=== PATIENT | male | born 1995 | race Caucasian/White ===

== ENCOUNTER 2017-03-22 05:44 | Emergency (ER) | payer BC, OTHER ==
[2017-03-22 05:55] VITALS: BP 140/76
[2017-03-22] MEDS ORDERED: Lidocaine 1% 50 ML MDV INJECT ONE (06:06)
--- NOTE | 2017-03-22 06:09 | EDM.PDOC ---
ED HPI GENERAL MEDICAL PROBLEM - General Chief Complaint: Laceration Stated Complaint: CUT LEFT THIGH Time Seen by Provider: 03/22/17 06:05 Source of Information: Reports: Patient, RN Notes Reviewed - History of Present Illness INITIAL COMMENTS - FREE TEXT/NARRATIVE: 21-year-old male suffered laceration injury to left leg a short time ago. He is working with a cook box filler and accidentally stabbed the left leg. There was some but not a lot of bleeding which was easily controlled with pressure, up-to-date with tetanus, no other injury - Related Data Allergies Allergy/AdvReac Type Severity Reaction Status Date / Time No Known Allergies Allergy Verified 03/22/17 05:55 Home Meds: Home Meds . [No Known Home Meds] 03/22/17 [History] Social & Family History - Tobacco Use Smoking Status *Q: Never Smoker - Recreational Drug Use Recreational Drug Use: No ED ROS GENERAL - Review of Systems Review Of Systems: See Below Constitutional: Reports: No Symptoms HEENT: Reports: No Symptoms Respiratory: Reports: No Symptoms Cardiovascular: Reports: No Symptoms GI/Abdominal: Denies: Nausea, Vomiting Musculoskeletal: Reports: Other (1.5 cm laceration injury left anterior mid thigh) ED EXAM, SKIN/RASH Exam: See Below General Appearance: Alert, No Apparent Distress Head: Atraumatic Respiratory/Chest: No Respiratory Distress Extremities: Other (1.5 cm laceration left mid thigh, moderately deep, gaping, no foreign material seen) Neurological: Alert, No Motor/Sensory Deficits Skin: Warm, Normal Color ED SKIN PROCEDURES - Laceration/Wound Repair Left Anterior Thigh Lac/wound length in cm: 1.5 Appearance: Linear Local Anesthesia - Lidocaine (Xylocaine): 1% Plain Skin Prep: Saline Suture Size: 4-0 # of Sutures: 5 Suture Type: Nylon Course - Vital Signs Last Recorded V/S: Last Vital Signs Temp 97.6 F 03/22/17 05:53 Pulse 90 03/22/17 05:53 Resp 16 03/22/17 05:53 BP 140/76 03/22/17 05:53 Pulse Ox 100 03/22/17 05:53 - Orders/Labs/Meds Meds: Medications Discontinued Medications Generic Name Dose Route Start Last Admin Trade Name Freq PRN Reason Stop Dose Admin Lidocaine HCl 50 ml 03/22/17 06:06 Xylocaine 1% INJECT 03/22/17 06:07 ONETIME ONE Departure - Departure Time of Disposition: 06:23 Disposition: Home, Self-Care 01 Condition: fair Clinical Impression: Leg laceration Qualifiers: Encounter type: initial encounter Laterality: left Qualified Code(s): S81.812A - Laceration without foreign body, left lower leg, initial encounter - Discharge Information Referrals: PCP,Not In Area [Primary Care Provider] - Forms: ED Department Discharge Additional Instructions: laceration care instr., stitches out in about 12 days, keep wrapped with cling or pressure type dressing when working or walking.
== END 2017-03-22 06:35 | disposition home or self-care (01) ==
LOC: JD.ED 05:44
DX: S81.812A Laceration without foreign body, left lower leg, initial encounter (principal); W27.8XXA Contact with other nonpowered hand tool, initial encounter; Y93.89 Activity, other specified; Y92.69 Other specified industrial and construction area as the place of occurrence of the external cause; Y99.0 Civilian activity done for income or pay
CPT/HCPCS: 12001; 99282-25; 99283-25